=== PATIENT | female | born 1965 | race Caucasian/White ===

== ENCOUNTER 2016-10-01 11:09 | Observation (INO) | payer BC ==
--- NOTE | 2016-09-14 23:04 | HP ---
CC: Dr. Ritu Finn * PREOPERATIVE HISTORY AND PHYSICAL: DATE OF ADMISSION: This patient is scheduled for same day surgery admission by Dr. Albarado on 09/17/16. DATE OF PREOPERATIVE HISTORY AND PHYSICAL EXAMINATION: 09/07/16 ATTENDING SURGEON: Dr. Joanna Albarado (dictated by Landy Hall NP). CHIEF COMPLAINT: Right breast cancer. HISTORY OF PRESENT ILLNESS: The patient is a 50-year-old female referred to Dr. Albarado by Dr. Ritu Finn for evaluation of a new right breast cancer diagnosis. The patient noticed a firm tender area in the inferior right breast about 2 months ago. This prompted an evaluation by her primary care provider and mammogram was performed on 08/26/16. She was found to have an abnormality in a slightly different area of the breast, which was biopsied and this revealed invasive ductal cancer. She has no family history of breast or ovarian cancer. Menarche was at age 12, menopause at age 40, first delivery at age 31, and she did breast feed. She is not taking any type of hormone therapy. She did take control pills for more than 10 years. She has never had radiation to the chest and has never had previous breast biopsies. Dr. Albarado ordered an MRI of the breast, which confirmed a large mass in the inferior portion of the right breast correlating with the known breast cancer; enlarged right axillary lymph nodes were suspicious for metastatic disease. Dr. Albarado met with the patient and discussed the above findings; she has recommended mammo -guided needle localization, excision of the right breast cancer and sentinel lymph node biopsy versus right mastectomy and full axillary dissection. Dr. Albarado discussed the nature of the surgical procedures, the relevant risks and benefits and today, I reviewed the expected postoperative care and recovery. The patient has had a chance to ask questions and stated that she understands the information and is satisfied with the answers given to her questions. She will sign surgical consent on the day of surgery. She will have a preoperative consultation with Dr. Julia Cornejo and Dr. Ti Thompson. She has the support of the Oncology nurse navigator as well. 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 Ramirez; celiac disease. PAST SURGICAL HISTORY: Tubal ligation; appendectomy; sinus surgery and liver biopsy. MEDICATIONS: 1. Omeprazole 40 mg p.r.n. 2. Hydrochlorothiazide 12.5 mg p.r.n. She previously took CellCept, but has been off of that for over a month. She does not take any vitamins or herbs or other [id number] medications. ALLERGIES: PENICILLIN. FAMILY HISTORY: There is a very strong family history of anaphylaxis in her parents, so the patient has never taken PENICILLIN; she is ALLERGIC TO GLUTEN and IBUPROFEN cause sneezing. Mother at age 49 with bile duct cancer. Father living with the history of hypertension. No known anesthesia reactions , bleeding tendencies or clotting disorders. 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 She has never been a smoker. She drinks alcohol socially and denies the use of other substances. REVIEW OF SYSTEMS: Constitutional: No recent symptoms. Cardiovascular: Denies chest pain, pressure, palpitations. Denies history of deep vein thrombosis or pulmonary embolism. Respiratory: Denies any shortness of breath. Denies any previous anesthesia complications. Gastrointestinal: History of celiac disease and autoimmune cirrhosis and hepatitis, followed by Dr. Ramirez. She has associated thrombocytopenia and platelet count is typically in the 50s. She denies any recent bleeding tendencies and received platelets and iron transfusions [place] [address] Ramirez. Genitourinary: Denies any dysuria or history of recent urinary tract or kidney infections. Musculoskeletal: She has occasional swelling of feet and ankles and takes hydrochlorothiazide p.r.n. Neurologic: Denies any conditions or complaints. PHYSICAL EXAMINATION GENERAL: The patient is a 50-year-old obese female, well-developed, in no acute distress. VITAL SIGNS: Height 63 inches, weight 189 pounds, body mass index 33.5. Blood pressure 118/80, pulse 86 and regular, respiratory rate 18, temperature 98, tympanic. HEENT: Benign. NECK: Supple. No cervical lymphadenopathy. No thyromegaly. BACK: No CVA tenderness. LUNGS: Breath sounds bilaterally clear and equal. BREASTS: Exam was performed while patient was in a supine and in a sitting position. Breasts are symmetrical. Resolving bruising of the right breast. No evidence of infection at the biopsy site. Palpation reveals dense tissue in both upper outer quadrants; in the right breast inferiorly is a broad area of thickening that is mildly tender. Nipples are normal bilaterally. No palpable supraclavicular lymphadenopathy. Palpable adenopathy of the right axillary nodes. HEART: Regular rate and rhythm. No murmurs or rubs. ABDOMEN: Active bowel sounds. Soft, nondistended, nontender throughout. No obvious masses, organomegaly or evidence of umbilical hernia. EXTREMITIES: Warm without edema or skin ulcerations. PELVIC AND RECTAL: Deferred. NEUROLOGIC: Alert and oriented x3. Steady gait. SKIN: Warm, dry, intact. IMPRESSION: Right breast cancer. PLAN: Same day surgery admission to Dr. Albarado's service on 09/17/16, for mammo-guided needle localization, excision, right breast cancer and sentinel lymph node biopsy versus right mastectomy and full axillary dissection. LANDY HALL, MEDICAL OFFICE ASST [id number]/[facility] #: [id number] [place]
[~2016-10-01 11:09] MED LIST: Buffered Lidocaine 0.9% SYRIN* 5 ML/SYR SYRINGE INTRADERM ONE; Buffered Lidocaine 0.9% SYRIN* 5 ML/SYR SYRINGE ONE; Clindamycin 900 MG IVPREMIX(* 0 MG/0 ML SDV IV ONE; Famotidine TAB* 20 MG ONE; Famotidine TAB* 20 MG PO ONE; Metoclopramide TAB* 10 MG ONE; Metoclopramide TAB* 10 MG PO ONE; Sodium Citrate/Citric Acid* 15 ML UDC ONE; Sodium Citrate/Citric Acid* 15 ML UDC PO ONE
[2016-10-01 11:48] LABS: Hematocrit 38 % (35-47); Mean Corpuscular HGB Conc 34 g/dl (31-36); Mean Corpuscular Hemoglobin 35 pg (27-31); Mean Corpuscular Volume 103 fL (80-97); Mean Platelet Volume 8 um3 (7.4-10.4); Red Blood Count 3.72 10^6/ul (4.0-5.4); Red Cell Distribution Width 15 % (10.5-15)
[2016-10-01 11:56] LABS: Comments Flag Yes
[2016-10-01] MEDS ORDERED: Clindamycin 900 MG IVPREMIX(* 900 MG/50 ML SDV IV ONE (12:01)
[2016-10-01] MEDS ORDERED: Scopolamine 1.5 mg* PATCH ONE (12:13)
[2016-10-01] MEDS ORDERED: Bupivacaine 0.25% SDV* 30 ML ONE (12:13)
[2016-10-01] MEDS ORDERED: fentaNYL* 50 MCG/ML 2 ML VIAL (100 MCG VIAL) ONE ×3 (13:04→17:07)
[2016-10-01] MEDS ORDERED: DiMENhydriNATE IV* 50 MG/ML VIAL IV PUSH PRN (13:44)
[2016-10-01] MEDS ORDERED: Dexamethasone IV* 4 MG/ML 1 ML (4 MG) ONE (14:17)
[2016-10-01] MEDS ORDERED: Propofol* 10 MG/ML 20 ML BTL IV PUSH ONE (14:17)
[2016-10-01] MEDS ORDERED: Lidocaine 2% PF * 5 ML VIAL ONE (14:17)
[2016-10-01] MEDS ORDERED: Ondansetron INJ* 2 MG/ML VIAL ONE (14:17)
[2016-10-01] MEDS ORDERED: Ondansetron INJ* 2 MG/ML VIAL IV PRN (16:35)
[2016-10-01] MEDS ORDERED: Docusate CAP* 100 MG PO PRN (16:35)
[2016-10-01] MEDS ORDERED: HYDROmorphone* 1 MG/ML 1 ML SYR IV PRN (16:35)
[2016-10-01] MEDS ORDERED: Acetaminophen TAB* 325 MG PO PRN (16:35)
--- NOTE | 2016-10-01 16:43 | PN ---
Progress Note - Progress Note Date of Service: 10/01/16 Note: Brief Operative Note: Pre-op: Right breast CA Post-op: Same Procedure: Bilateral mastectomy with right axillary dissection Surgeon: Dr. Albarado Parts Analyst: Nathaly Mccoy Anaesthesia: GETA EBL: 250 cc Fluids: 3000 cc LR Drains: AMANDA-vac to self-suction x3 Catheter: None Specimen: Bilateral breasts, Right axillary contents
[2016-10-01] MEDS ORDERED: HYDROmorphone* 1 MG/ML 1 ML SYR ONE (16:44)
[2016-10-01] MEDS: HYDROmorphone* 1 MG/ML 1 ML SYR IV PRN ×5 (16:45→17:24)
[2016-10-01] MEDS: fentaNYL* 50 MCG/ML 2 ML VIAL (100 MCG VIAL) IV PRN ×2 (17:07→17:14)
[2016-10-01] MEDS ORDERED: oxyCODONE/Acetamin 5/325 MG* TAB ONE (19:04)
[2016-10-01] MEDS: diPHENhydraMINE PO* 25 MG PO PRN (20:50)
[2016-10-01] MEDS: oxyCODONE/Acetamin 5/325 MG* TAB PO PRN (23:04)
[2016-10-02] MEDS: oxyCODONE/Acetamin 5/325 MG* TAB PO PRN ×5 (03:23→21:25)
[2016-10-02 07:25] LABS: Comments Flag Yes; Hematocrit 32 % (35-47); Hemoglobin 10.9 g/dl (12.0-16.0); Mean Corpuscular HGB Conc 34 g/dl (31-36); Mean Corpuscular Hemoglobin 36 pg (27-31); Mean Corpuscular Volume 105 fL (80-97); Mean Platelet Volume 8 um3 (7.4-10.4); Red Blood Count 3.05 10^6/ul (4.0-5.4); Red Cell Distribution Width 14 % (10.5-15); White Blood Count 8.5 10^3/ul (3.5-10.8)
--- NOTE | 2016-10-02 07:50 | PN ---
Progress Note - Progress Note Date of Service: 10/02/16 Note: Surgery Ms. Flynn c/o some pain in right axilla and also some "tingling" in the right arm. She has tolerated clears. She has some dizziness which she attributes to not eating. Vital Signs 10/01/16 10/01/16 10/01/16 11:37 16:35 16:40 Temperature 97.9 F 98.2 F Pulse Rate 86 87 84 Respiratory 16 20 20 Rate Blood Pressure 119/77 112/63 102/70 (mmHg) O2 Sat by Pulse 97 93 95 Oximetry 10/01/16 10/01/16 10/01/16 16:45 16:50 16:54 Temperature Pulse Rate 81 80 Respiratory 20 20 20 Rate Blood Pressure 109/87 106/80 (mmHg) O2 Sat by Pulse 96 95 Oximetry 10/01/16 10/01/16 10/01/16 17:00 17:03 17:07 Temperature Pulse Rate 82 Respiratory 20 20 20 Rate Blood Pressure 101/70 (mmHg) O2 Sat by Pulse 95 Oximetry 10/01/16 10/01/16 10/01/16 17:13 17:14 17:15 Temperature 98.4 F Pulse Rate 60 Respiratory 18 18 20 Rate Blood Pressure 109/73 (mmHg) O2 Sat by Pulse 99 Oximetry 10/01/16 10/01/16 10/01/16 17:24 17:30 17:47 Temperature Pulse Rate 77 63 Respiratory 18 18 20 Rate Blood Pressure 113/81 102/75 (mmHg) O2 Sat by Pulse 99 98 Oximetry 10/01/16 10/01/16 10/01/16 18:36 19:10 19:39 Temperature 98.4 F 97.8 F Pulse Rate 71 64 Respiratory 16 16 16 Rate Blood Pressure 120/68 97/46 (mmHg) O2 Sat by Pulse 97 97 Oximetry 10/01/16 10/01/16 10/01/16 20:13 20:45 20:50 Temperature 98.2 F Pulse Rate 81 Respiratory 16 16 16 Rate Blood Pressure 114/57 (mmHg) O2 Sat by Pulse 97 Oximetry 10/01/16 10/01/16 10/01/16 20:58 22:24 23:04 Temperature 99.7 F Pulse Rate 72 Respiratory 16 16 16 Rate Blood Pressure 99/64 (mmHg) O2 Sat by Pulse 98 Oximetry 10/02/16 10/02/16 10/02/16 00:16 01:03 03:08 Temperature 98.8 F 98.2 F Pulse Rate 77 67 Respiratory 16 16 16 Rate Blood Pressure 124/48 99/55 (mmHg) O2 Sat by Pulse 97 98 Oximetry 10/02/16 10/02/16 10/02/16 03:23 05:23 07:48 Temperature Pulse Rate Respiratory 20 16 16 Rate Blood Pressure (mmHg) O2 Sat by Pulse Oximetry Mastectomy sites: all flaps viable; incisions clean and dry. JPs: all are draining serosanguinous fluid Intake & Output 10/01/16 10/02/16 10/02/16 22:59 06:59 14:59 Intake Total 4180 1000 Output Total 1020 715 600 Balance 3160 285 -600 Intake: IV Fluids 2180 LR 200 NS 1000 Oral 2000 1000 Output: AMANDA #1 185 90 AMANDA #2 240 70 AMANDA #3 195 55 Urine 400 500 600 Other: # Bowel Movements 0 Laboratory Results - last 24 hr 10/01/16 10/01/16 10/02/16 11:35 11:38 07:06 WBC 3.0 L 8.5 RBC 3.72 L 3.05 L Hgb 13.0 10.9 L Hct 38 32 L MCV 103 H 105 H MCH 35 H 36 H MCHC 34 34 RDW 15 14 Plt Count 64 L 79 L MPV 8 8 Neut % (Auto) 82.4 Lymph % (Auto) 12.2 L Lander % (Auto) 5.2 Eos % (Auto) 0 Baso % (Auto) 0.2 Absolute Neuts (auto) 7.0 Absolute Lymphs (auto) 1.0 Absolute Monos (auto) 0.4 Absolute Eos (auto) 0 Absolute Basos (auto) 0 Absolute Nucleated RBC 0.01 Nucleated RBC % 0.1 INR (Anticoag Therapy) 1.19 H A/P: POD#1 s/p bilateral mastectomies; doing well. Can go home when tolerating PO, when comfortable managing drains, and when pain under control [facility]
--- NOTE | 2016-10-02 13:31 | OP ---
CC: [facility]; Dr. Julia Cornejo; Dr. Ritu Finn * DATE OF OPERATION: 10/01/16 - ROOM #333 DATE OF : 65 SURGEON: Joanna Albarado MD ASSISTANTS: 1. MARIUSZ Duncan 2. KOJO Rivers ANESTHESIOLOGIST: Carlos Enrique Rivera MD ANESTHESIA: General PRE-OP DIAGNOSIS: Right breast cancer. POST-OP DIAGNOSIS: Right breast cancer. OPERATIVE PROCEDURE: Right mastectomy with axillary dissection and left simple mastectomy. INDICATIONS: Ms. Flynn is a 51-year-old woman with a recent diagnosis of breast cancer who has opted for bilateral mastectomies; and, since she has clinically positive lymph nodes, she requires an axillary dissection. She was therefore prepared for surgery and brought to the operating room. DESCRIPTION OF PROCEDURE: She was placed on the OR table in the supine position and given general anesthesia. The chest and right axilla were prepped and draped in the usual sterile fashion. First step was to turn to the right side, which was the side of the malignancy, here a curvilinear incision in the superior breast was made and subcutaneous tissue was divided with electrocautery to create flaps superiorly to the clavicle, medially to the sternum, and laterally to the latissimus dorsi muscle. An inferior incision was made to create ellipse that included the nipple-areolar complex and again the subcutaneous tissue was divided with electrocautery to create flaps medially to the sternum, inferiorly to the rectus muscle, and laterally to the latissimus dorsi muscle. The breast was then elevated off the chest wall using electrocautery. Throughout the case, electrocautery was used to control bleeding vessels. Once the lateral most extent of the mastectomy dissection was reached, attention was turned to the axilla and here the axillary contents were identified and swept posteriorly from the pectoralis muscle, inferiorly from the axillary vein, and using a combination of sharp and blunt dissection, the axillary contents were dissected free from the axilla. Clips were used to control small lymphatic and blood vessels in the area and the long thoracic and thoracodorsal nerves were identified and noted to be functional. Once the entire specimen was out of the axilla and off the chest wall, it was marked in the usual fashion and handed off as a specimen. Again, hemostasis was assured and the wound was irrigated with saline. Closure was then accomplished. The subcutaneous layer was closed first using 2-0 Polysorb stitches and prior to completing this closure, AMANDA drain was placed in the wound, emerging from stab wound in the anterior and midaxillary lines inferiorly. The medial AMANDA drain was placed under the flaps to the mastectomy site and the lateral AMANDA drain was placed in the axillary bed. Closure of the skin of the incision was completed with 4-0 Polysorb in a subcuticular fashion and the drains were secured to the chest wall with 3-0 Surgipro stitches. Attention was then turned to the left side and here in a similar fashion a superior incision was made encompassing the superior breast. Flaps were developed using electrocautery medially to the sternum, superiorly to the clavicle, and laterally to the latissimus dorsi muscle. Then, an inferior incision was made and subcutaneous tissue was again dissected using cautery medially to the sternum, inferiorly to the rectus muscle, and laterally to the latissimus dorsi muscle. The breast was elevated off the chest wall using electrocautery and once it was completely removed from the chest wall, it was handed off as a specimen. Hemostasis was assured with electrocautery and once this was adequate, closure was accomplished. Additional skin had to be excised to make the closure nice. Once this was done, closure was accomplished with 2- 0 Polysorb in a subcutaneous layer and the skin was closed with 4-0 Polysorb in a subcuticular fashion. Again, just prior to closing, a AMANDA drain was placed under the flaps of the mastectomy site, emerging from the stab wound in the anterior axillary line inferiorly. It was secured to the chest wall with a 3-0 Surgipro stitch. Finally, it should be mentioned that additional skin was also removed from the right side prior to completing the closure there. Steri- Strips and dry fluffy dressing were applied and held in place with an Matt wrap. All sponge and instrument counts were correct. The patient tolerated the procedure well and was transferred to Recovery in a stable condition. [id number]/[facility] #: [id number] [place]
[2016-10-02] MEDS: diPHENhydraMINE PO* 25 MG PO PRN (19:00)
[2016-10-03] MEDS: oxyCODONE/Acetamin 5/325 MG* TAB PO PRN ×3 (01:13→10:01)
[2016-10-03 07:47] VITALS: BP 122/55
--- NOTE | 2016-10-03 09:37 | PN ---
Progress Note - Progress Note Date of Service: 10/03/16 SOAP: Subjective: Pt seen and examined. No complaints. Wants to go home. Objective: af vss chest : No evidence of undrained collections; dressing intact and not removed. AMANDA x3: serosanguinous Assessment: POD b/l mastectomy Plan: d/c home F/u in office
[2016-10-03] MEDS: diPHENhydraMINE PO* 25 MG PO PRN (11:00)
== END 2016-10-03 11:20 | disposition home or self-care (01) ==
LOC: SDS 11:09 → SSU 16:35
PROVIDERS: ADMIT Surgery; ATTEND Surgery
PROC: 07T50ZZ Resection of Right Axillary Lymphatic, Open Approach (ICD-10-PCS; 2016-10-01)
PROC: 0HTV0ZZ Resection of Bilateral Breast, Open Approach (ICD-10-PCS; principal; 2016-10-01 13:30)
DX: C50.911 Malignant neoplasm of unspecified site of right female breast (principal); K75.4 Autoimmune hepatitis; D69.6 Thrombocytopenia, unspecified; K90.0 Celiac disease; Z79.899 Other long term (current) drug therapy
CPT/HCPCS: 36415; 85025; 85027; 85610; 88305; 88307; 88309; A9270-GY; G0378; J1100; J1170; J2405; J2704; J3010; P9035

== ENCOUNTER 2016-10-29 08:32 | Day surgery (SDC) | payer BC ==
[~2016-10-29 08:32] MED LIST changes: -Buffered Lidocaine 0.9% SYRIN* 5 ML/SYR SYRINGE ONE; -Clindamycin 900 MG IVPREMIX(* 0 MG/0 ML SDV IV ONE; +Famotidine IV* 10 MG/ML 2 ML (20 mg) IV ONE; -Famotidine TAB* 20 MG ONE; -Famotidine TAB* 20 MG PO ONE; -Metoclopramide TAB* 10 MG ONE; -Metoclopramide TAB* 10 MG PO ONE; -Sodium Citrate/Citric Acid* 15 ML UDC ONE; -Sodium Citrate/Citric Acid* 15 ML UDC PO ONE
[2016-10-29] MEDS ORDERED: Famotidine IV* 10 MG/ML 2 ML (20 mg) ONE (08:50)
[2016-10-29] MEDS ORDERED: Buffered Lidocaine 0.9% SYRIN* 5 ML/SYR SYRINGE ONE (08:51)
[2016-10-29] MEDS ORDERED: Midazolam* 1 MG/ML 5 ML VIAL (5 MG) ONE (09:27)
[2016-10-29] MEDS ORDERED: fentaNYL* 50 MCG/ML 2 ML VIAL (100 MCG VIAL) ONE (09:27)
[2016-10-29 09:37] LABS: Hematocrit 31 % (35-47); Mean Corpuscular HGB Conc 33 g/dl (31-36); Mean Corpuscular Hemoglobin 33 pg (27-31); Mean Corpuscular Volume 100 fL (80-97); Mean Platelet Volume 8 um3 (7.4-10.4); Red Blood Count 3.07 10^6/ul (4.0-5.4); Red Cell Distribution Width 14 % (10.5-15); White Blood Count 2.7 10^3/ul (3.5-10.8)
[2016-10-29 09:43] LABS: Comments Flag Yes
[2016-10-29] MEDS ORDERED: Acetaminophen TAB* 325 MG PO PRN (10:10)
[2016-10-29] MEDS ORDERED: DiMENhydriNATE IV* 50 MG/ML VIAL IV PUSH PRN (10:10)
[2016-10-29] MEDS ORDERED: Bupivacaine 0.5% W/EPI SDV* 10 ML VIAL INJ ONE (10:20)
[2016-10-29] MEDS ORDERED: Lidocaine 1% INJ* 10 MG/ML 30 ML SDV ONE (10:21)
[2016-10-29] MEDS ORDERED: KETAMINE HCL* 50 MG/ML 10 ML VIAL ONE (10:59)
[2016-10-29] MEDS ORDERED: ceFAZolin 1 GM VIAL(*) ONE ×2 (11:01)
[2016-10-29] MEDS ORDERED: Lidocaine 2% PF * 5 ML VIAL ONE (11:10)
[2016-10-29] MEDS ORDERED: Propofol* 10 MG/ML 20 ML BTL IV PUSH ONE ×2 (11:10→11:41)
[2016-10-29] MEDS ORDERED: Ondansetron INJ* 2 MG/ML VIAL ONE (11:10)
[2016-10-29] MEDS ORDERED: Dexamethasone IV* 4 MG/ML 1 ML (4 MG) ONE (11:10)
[2016-10-29] MEDS ORDERED: Midazolam* 1 MG/ML 2 ML VIAL (2 MG) ONE (11:22)
[2016-10-29] MEDS ORDERED: DiMENhydriNATE IV* 50 MG/ML VIAL ONE (11:36)
[2016-10-29] MEDS ORDERED: oxyCODONE TAB* 5 MG TAB ONE (12:26)
[2016-10-29] MEDS: oxyCODONE TAB* 5 MG TAB PO PRN ×2 (12:27→12:28)
[2016-10-29] MEDS ORDERED: oxyCODONE/Acetamin 5/325 MG* TAB PO PRN (12:28)
--- NOTE | 2016-10-29 12:43 | RAD ---
CPT II Codes: 6045F Indication: PowerPort insertion. Fluoroscopic services provided for referring physician for PowerPort insertion. 92.5 seconds of fluoroscopy time was used. 2 spot images demonstrates PowerPort tip in superior vena cava. IMPRESSION: Fluoroscopic services provided for referring physician for PowerPort placement.
--- NOTE | 2016-10-29 12:56 | RAD ---
INDICATION: Central venous line insertion COMPARISON: 2016 TECHNIQUE: An AP portable view obtained at 1230 hours is submitted. FINDINGS: Bones/Soft Tissues: There are no acute bony findings. There is a left-sided [id number] catheter terminating in the superior vena cava Cardiomediastinal: The cardiomediastinal silhouette is normal. Lungs: There are no infiltrates. There is no pneumothorax Pleura: There are no pleural effusions. Other: None IMPRESSION: LEFT-SIDED CENTRAL VENOUS CATHETER. NO PNEUMOTHORAX.
[2016-10-29 13:01] LABS: Albumin 2.8 g/dL (3.2-5.2); BUN/Creatinine Ratio 17.5 (8-20); Calcium 7.7 mg/dL (8.6-10.3); Direct Bilirubin 0.3 mg/dL (0.03-0.18); EGFR African American 216.4 (>60); EGFR Non-African American 168.3 (>60); Globulin 2.7 g/dL (2-4); Indirect Bilirubin 0.8 mg/dL (0.3-1.0); Total Bilirubin 1.1 mg/dL (0.2-1.0); Total Protein 5.5 g/dL (6.4-8.9)
[2016-10-29 13:16] VITALS: BP 115/80
--- NOTE | 2016-11-15 03:47 | OP ---
DATE OF OPERATION: 10/29/16 [facility] DATE OF : 65 SURGEON: Joanna Albarado MD ANESTHESIOLOGIST: Almaz Hodges MD ANESTHESIA: MAC PRE-OPERATIVE DIAGNOSIS: Breast cancer. POST-OPERATIVE DIAGNOSIS: Breast cancer. OPERATIVE PROCEDURE: PowerPort placement. INDICATIONS: Ms. Flynn is a 51-year-old woman recently diagnosed with breast cancer, who underwent bilateral mastectomy and needs chemotherapy. Plans were therefore made for PowerPort placement. DESCRIPTION OF PROCEDURE: She was brought to the operating room, placed on the OR table in a supine position and given IV sedation. The chest was prepped and draped in the usual sterile fashion and after infiltrating with local anesthetic , using a Seldinger technique under fluoroscopic visualization, a wire was placed into the left subclavian vein. Then, a port pocket was created by infiltrating the skin of the chest wall with local anesthetic making an incision and creating a pocket inferiorly using electrocautery. Once the pocket was of an adequate size, the catheter was tunneled from the port pocket site to the wire exit site and then dilator and introducer were placed over the wire into the left subclavian vein under fluoroscopic visualization. The dilator and wire were removed. The catheter was advanced through the introducer under fluoroscopic visualization as the introducer was peeled away. The catheter was then drawn back to an appropriate depth and trimmed to an appropriate length, attached to the port. The port was inserted into the port pocket and secured to the chest wall with 2-0 Surgipro stitches, then closure was accomplished, this was done with 3-0 Polysorb in the subcutaneous layer. The skin was closed with 4-0 Surgipro in a subcuticular fashion. Prior to closing them, function of the port was confirmed by flushing it with saline and then after the skin was closed with 4-0 Surgipro in a subcuticular fashion, the port was flushed with heparinized saline and the needle was left in place. A dry sterile dressing was then applied. All sponge and instrument counts were correct. The patient tolerated the procedure well and was transferred to Recovery in a stable condition. [id number]/[facility] #: [id number] [facility]
== END 2016-10-29 13:24 | disposition home or self-care (01) ==
LOC: OR 08:32
PROVIDERS: ATTEND Surgery
DX: C50.511 Malignant neoplasm of lower-outer quadrant of right female breast (principal); D69.6 Thrombocytopenia, unspecified; K75.4 Autoimmune hepatitis; K71.7 Toxic liver disease with fibrosis and cirrhosis of liver
CPT/HCPCS: 36415; 71010; 76000; 80053; 82248; 85025; A9270-GY; C1788; J0690; J1100; J1240; J1642; J2001; J2250; J2405; J2704; J3010

== ENCOUNTER 2018-12-30 15:31 | Inpatient (IN) | payer BC ==
--- NOTE | 2018-12-30 15:45 | ED ---
Altered Mental Status - HPI Summary HPI Summary: 53 year old F brought in by EMS to [facility] accompanied by family members complains of disorientation and confusion since yesterday after dinner. Per daughter, patient feels unsteady on her feet. Symptoms aggravated by nothing. Symptoms alleviated by nothing. Patient has had episodes of similar symptoms in the past for which she has been hospitalized, last time being 2 weeks ago. Patient is visiting [place] from [place]. Hx renal failure secondary to non-alcoholic cirrhosis. Hx anemia. Hx breast cancer. Surgical hx: mastectomy. Patient has a port. - History Of Current Complaint Chief Complaint: EDAltMentalStatus Stated Complaint: LETHARGY / CONFUSION PER EMS Time Seen by Provider: 12/30/18 15:41 Hx Obtained From: Patient, Family/Wholesale Manager - daughter Onset/Duration: Still Present Timing: Constant, Lasting Hours - yesterday after dinner Character: Confusion Aggravating Factor(s): Nothing Alleviating Factor(s): Nothing - Allergies/Home Medications Allergies/Adverse Reactions: Allergies Allergy/AdvReac Type Severity Reaction Status Date / Time gluten Allergy GI Upset Verified 12/30/18 15:42 Penicillins Allergy See Comment Verified 12/30/18 15:42 PMH/Surg Hx/FS Hx/Imm Hx Endocrine/Hematology History: Denies: Hx Diabetes Cardiovascular History: Denies: Hx Hypertension, Hx Pacemaker/ICD, Other Cardiovascular Problems/ Disorders Respiratory History: Denies: Other Respiratory Problems/Disorders GI History: Reports: Hx Cirrhosis - non-alcoholic, caused by ciliac disease Denies: Other GI Disorders History: Reports: Other Problems/Disorders - renal failure Musculoskeletal History: Denies: Other Musculoskeletal History Sensory History: Reports: Hx Contacts or Glasses - contacts and glasses Denies: Hx Hearing Aid Opthamlomology History: Reports: Hx Contacts or Glasses - contacts and glasses Neurological History: Denies: Other Neuro Impairments/Disorders Psychiatric History: Denies: Hx Panic Disorder - Cancer History Cancer Type, Location and Year: BREAST CA Hx Chemotherapy: No - will be starting on tuesday - Surgical History Surgery Procedure, Year, and Place: biopsies, appendectom. mastectomy Hx Anesthesia Reactions: No Infectious Disease History: No Infectious Disease History: Reports: Hx Hepatitis - autoimmune Denies: Traveled Outside the [place] in Last 30 Days - Family History Known Family History: Positive: Other - NEG: Breast cancer - Social History Alcohol Use: Weekly Alcohol Amount: 1 Substance Use Type: Reports: None Substance Use Comment - Amount & Last Used: at democrat Smoking Status (MU): Never Smoked Tobacco Have You Smoked in the Last Year: No Review of Systems Negative: Fever Neurological: Other - disorientation, confusion, unsteady on her feet All Other Systems Reviewed And Are Negative: Yes Physical Exam - Summary Physical Exam Summary: Appearance: The patient is well-nourished in no acute distress and in no acute pain. Skin: The skin is warm and dry. She is jaundiced and icteric. HEENT: The head is normocephalic and atraumatic. The pupils are equal and reactive. The conjunctivae are clear and without drainage. Nares are patent and without drainage. Mouth reveals moist mucous membranes, and the throat is without erythema and exudate. The external ears are intact. The ear canals are patent and without drainage. The tympanic membranes are intact. Neck: The neck is supple with full range of motion and non-tender. There are no carotid bruits. There is no neck vein distension. Respiratory: Chest is non-tender. Lungs are clear to auscultation and breath sounds are symmetrical and equal. Cardiovascular: Heart is regular rate and rhythm. There is no murmur or rub auscultated. There is no peripheral edema and pulses are symmetrical and equal. Abdomen: The abdomen is soft and non-tender. There are normal bowel sounds heard in all four quadrants and there is no organomegaly palpated. Musculoskeletal: There is no back tenderness noted. Extremities are non-tender with full range of motion. There is good capillary refill. There is no peripheral edema or calf tenderness elicited. Neurological: Patient is asterixis and oriented to person, place and time. The patient has symmetrical motor strength in all four extremities. Cranial nerves are grossly intact. Deep tendon reflexes are symmetrical and equal in all four extremities. Psychiatric: The patient has an appropriate affect and does not exhibit any anxiety or depression. Triage Information Reviewed: Yes Vital Signs On Initial Exam: Initial Vitals Temp Pulse Resp BP Pulse Ox 98.3 F 69 15 91/56 100 12/30/18 15:35 12/30/18 15:35 12/30/18 15:35 12/30/18 15:35 12/30/18 15:35 Vital Signs Reviewed: Yes Procedures - Sedation Patient Received Moderate/Deep Sedation with Procedure: No Diagnostics - Vital Signs Vital Signs Temp Pulse Resp BP Pulse Ox 12/30/18 15:35 98.3 F 69 15 91/56 100 - Laboratory Result Diagrams: 12/30/18 16:17 12/30/18 16:17 Lab Statement: Any lab studies that have been ordered have been reviewed, and results considered in the medical decision making process. Altered Mental Statu Course/Dx - Course Course Of Treatment: Ms. Flynn was brought in by her family for confusion. She has a history of HILL and has been admitted for hepatic encephalitis several times. She was a bit confused with an unsteady gait and asterixis. Her ammonia was 273. She is reportedly on lactulose and says that she has been taking it. - Diagnoses Provider Diagnoses: Hepatic encephalopathy - Provider Notifications Discussed Care Of Patient With: Trae Aburto Time Discussed With Above Provider: 17:05 Instructed by Provider To: Other - Dr. Aburto, hospitalist, agrees to admit patient Discharge ED - Sign-Out/Discharge Documenting (check all that apply): Patient Departure - Admit - Discharge Plan Condition: Stable Disposition: ADMITTED TO [facility] Referrals: Ritu Finn MD [Medical Doctor] - - Billing Disposition and Condition Condition: STABLE Disposition: Admitted to [facility] - Attestation Statements Document Initiated by Robin: Yes Documenting Scribe: Shelly Glasgow Provider For Whom Robin is Documenting (Include Credential): Romel Whitmore MD Scribe Attestation: Shelly Guerrero, scribed for Romel Whitmore MD on 12/30/18 at 1810. Scribe Documentation Reviewed: Yes Provider Attestation: The documentation as recorded by the scribe, Shelly Glasgow accurately reflects the service I personally performed and the decisions made by me, Romel Whitmore MD Status of Scribe Document: Viewed
[2018-12-30 16:35] LABS: INR 1.27 (0.82-1.09)
[2018-12-30 16:48] LABS: Albumin 3.1 g/dL (3.2-5.2); Albumin/Globulin Ratio 1.2 (1-3); BUN/Creatinine Ratio 27.3 (8-20); Calcium 8.3 mg/dL (8.6-10.3); EGFR African American 94.9 (>60); EGFR Non-African American 78.4 (>60); Globulin 2.6 g/dL (2-4); Potassium 4.3 mmol/L (3.5-5.0); Total Protein 5.7 g/dL (6.4-8.9)
[2018-12-30 17:03] LABS: Urine Appearance Clear; Urine Bilirubin Negative (Negative); Urine Blood Negative (Negative); Urine Color Straw; Urine Glucose Negative (Negative); Urine Ketones Negative (Negative); Urine Nitrite Negative (Negative); Urine Protein Negative (Negative); Urine Specific Gravity 1.005 (1.010-1.030); Urine Urobilinogen Negative (Negative)
[2018-12-30 17:13] LABS: ABS Eosinophils 0.2 10^3/ul (0-0.6); ABS Lymphocytes 0.8 10^3/ul (1.0-4.8); ABS Monocytes 0.3 10^3/ul (0-0.8); ABS Neutrophils 1.9 10^3/ul (1.5-7.7); Eosinophil % 5.6 %; Hematocrit 22 % (35-47); Hemoglobin 7.9 g/dL (12.0-16.0); Lymphocyte % 25.1 %; Mean Corpuscular HGB Conc 35 g/dL (31-36); Mean Corpuscular Hemoglobin 39 pg (27-31); Mean Corpuscular Volume 111 fL (80-97); Mean Platelet Volume 7.9 fL (7.4-10.4); Nucleated Red Blood Cells % 0.1; Platelet Count 97 10^3/uL (150-450); Red Cell Distribution Width 26 % (10-15); White Blood Count 3.2 10^3/uL (3.5-10.8)
[2018-12-30 17:34] LABS: Polychromasia 1+
[2018-12-30 17:35] LABS: Microcytosis 2+
[2018-12-30] MEDS ORDERED: Prochlorperazine TAB* 10 MG PO PRN (18:56)
[2018-12-30] MEDS: Pantoprazole TAB * 40 MG TAB PO SCH (20:54)
[2018-12-30] MEDS: Heparin VIAL(*) 5000 UNITS/ML VIAL (FIVE THOUSAND) SUBCUT SCH (20:54)
[2018-12-30] MEDS ORDERED: RIFAXIMIN PO SCH (21:00)
[2018-12-30] MEDS: Rifaximin 20 mg/mL Suspension (Pharmacy to Compound) PO SCH (21:13)
--- NOTE | 2018-12-30 22:40 | HP ---
HISTORY AND PHYSICAL: DATE OF ADMISSION: 12/30/18 PRIMARY CARE PHYSICIAN: Not listed. ATTENDING PHYSICIAN: Dr. Aston Aburto * (dictation provided by Olinda Cortez NP ). CHIEF COMPLAINT: Altered mental status. HISTORY OF PRESENT ILLNESS: Ms. Flynn is a 53-year-old female with a past medical history of nonalcoholic steatohepatitis as well as a past medical history breast cancer status post mastectomy and chemotherapy, who presents to the hospital today with concern for altered mental status. Ms. Flynn is accompanied by her daughter and she is able to offer some information, but most of the past medical history and the history of present illness was obtained from her , Dakota, who I spoke with on the phone. Per the report Ms. Flynn has had a long-term history of HILL that was essentially asymptomatic. About 2 years ago, she was diagnosed with breast cancer and had a double mastectomy with chemotherapy and radiation. This seemed to have exacerbated her underlying liver failure. Over the past 4 to 5 months, she has had multiple episodes of internal bleeding and has been hospitalized 6 to 7 times. Her reports that she has received 30 to 35 units packed red blood cells for this. However, this seems to have finally stabilized over the past month or so. Over the past 1.5 to 2 months, the patient has had problems with elevated ammonia. It seems that these episodes recur about every 2 weeks. She has been admitted to the hospital 2 to 3 times for this as well. For this, she is taking lactulose and rifaximin. However, she has had a hard time taking the lactulose as the viscosity of it is very distasteful to her Ms. Flynn lives in [place], but is visiting here in the area because she is seeing her family. Emergency medical services were called to bring the patient to the emergency room today because she was evidencing confusion and lethargy. Here in the emergency room, the patient's ammonia level was found to be 273. She has a hemoglobin of 7.9, but her says that she has been chronically anemic and that this is actually good for her. She is only transfused when hemoglobin is less than 7. She has an INR of 1.27. Her sodium is 129. Her BUN and creatinine are normal. Troponin 0.00 and urine shows no evidence of infection. She is drowsy, but she does awaken to voice. She is confused. She follows commands. PAST MEDICAL HISTORY: 1. HILL with likely advanced cirrhosis and chronic intermittent hyperammonemic encephalopathy. 2. Breast cancer status post mastectomy and chemoradiation. 3. Anemia with chronic GI bleed. MEDICATIONS: 1. Compazine 10 mg q.6 hours p.r.n. 2. Colestipol 1 g p.o. daily. 3. Sucralfate 5 mL p.o. b.i.d. 4. Pantoprazole 40 mg p.o. b.i.d. 5. Lactulose 45 mL p.o. 4 times a day. 6. Furosemide 40 mg p.o. daily. 7. Anastrozole 1 mg p.o. daily. 8. Spironolactone 100 mg p.o. daily. 9. Rifaximin 550 mg p.o. b.i.d. 10. Nadolol 20 mg p.o. daily. 11. Loperamide 2 mg p.o. q.2 hours p.r.n. diarrhea. 12. Hydroxyzine 10 mg p.o. t.i.d. p.r.n. itching. FAMILY HISTORY: Not obtainable from the patient today. SOCIAL HISTORY: No report has been made of alcohol or drug use. The patient lives with her , Dakota, who is the healthcare proxy. REVIEW OF SYSTEMS: Not obtainable today given the patient's altered mental status. PHYSICAL EXAMINATION GENERAL: Ms. Flynn is lying in the bed. She is in no acute distress. Her daughter is at the bedside. VITAL SIGNS: Temperature 98.3, pulse rate 74, respiratory rate 14, O2 saturation 100% on room air, blood pressure 84/43. LUNGS: Clear to auscultation bilaterally with no accessory muscle use and good aeration. HEART: S1, S2. No murmur, rub or gallop and regular. ABDOMEN: Soft, nontender with bowel sounds positive x4. EXTREMITIES: No cyanosis, no edema. NEURO: She is sleeping when not stimulated. She does open her eyes to voice. She follows commands slowly. She moves all extremities equally. There is no facial asymmetry or focal weakness. Extraocular movements are intact. She is reported to have some uneven pupillary reaction, but the symptoms resolved. SKIN: Intact. DIAGNOSTIC STUDIES/LAB DATA: WBC 3.2, hemoglobin 7.9, hematocrit 22, platelet count 97. INR 1.27. Sodium 129, potassium 4.3, chloride 106, bicarbonate 16, BUN 21, creatinine 0.77, glucose 120. Total bilirubin 3, AST 49, ALT 59. Ammonia 273. Urine shows no evidence of infection. ASSESSMENT: Ms. Flynn is a 53-year-old female with a past medical history of advanced nonalcoholic steatohepatitis as well as breast cancer status post mastectomy, chemo and radiation, who presents today to the hospital with concern for altered mental status. Our plans are for inpatient admission. As expected the length of stay would be greater than 2 days for the followin. Altered mental status: I suspect this is secondary to elevated ammonia level in the setting of nonalcoholic steatohepatitis and cirrhosis leading to hyperammonemic encephalopathy. The patient seems to have had some difficulty taking the lactulose routinely as the viscosity is very distasteful to her and I wonder whether or not this is what is contributing to some of these episodes. Regardless, we plan to treat with lactulose. If the patient able to tolerate taking it orally, we will proceed with that route, but if she is unable to do so , plan to place NG tube tonight. We will check ammonia level and comprehensive metabolic panel in the a.m. She shows no evidence of infection or other reason for decompensation tonight. 2. Anemia. The patient's hemoglobin is 7.9. The patient's reports this is actually good for her and that she has been receiving transfusions when hemoglobin was less than 7 only. She does get iron infusion as outpatient as well. She shows no overt evidence of a gastrointestinal bleed tonight. 3. Hypotension. Patient is chronically hypotensive per report from family and this is consistent with her history. Plan to continue furosemide, spironolactone for her HILL unless SBP < 80. 3. History of breast cancer. I plan to hold anastrozole. 4. Code status is full. This was reviewed with her on the phone. 5. DVT prophylaxis with heparin subcu. TIME SPENT: Approximately 60 minutes was spent on the admission of this patient , more than half of the time was spent at the patient's bedside reviewing the events leading up to this hospitalization, performing physical examination, and reviewing my plan of care. OLINDA CORTEZ BUSINESS LIAISON MANAGER [id number]/[facility] #: [id number] [place]
[2018-12-31 06:37] LABS: Albumin 2.7 g/dL (3.2-5.2); Albumin/Globulin Ratio 1.2 (1-3); BUN/Creatinine Ratio 24.1 (8-20); Calcium 8.1 mg/dL (8.6-10.3); EGFR Non-African American 71.9 (>60); Globulin 2.2 g/dL (2-4); Potassium 4.1 mmol/L (3.5-5.0); Total Bilirubin 2.6 mg/dL (0.2-1.0); Total Protein 4.9 g/dL (6.4-8.9)
[2018-12-31 06:46] LABS: ABS Eosinophils 0.2 10^3/ul (0-0.6); ABS Lymphocytes 0.9 10^3/ul (1.0-4.8); ABS Monocytes 0.2 10^3/ul (0-0.8); ABS Neutrophils 0.9 10^3/ul (1.5-7.7); Eosinophil % 7.7 %; Hematocrit 18 % (35-47); Hemoglobin 6.7 g/dL (12.0-16.0); Lymphocyte % 42.7 %; Mean Corpuscular HGB Conc 36 g/dL (31-36); Mean Corpuscular Hemoglobin 40 pg (27-31); Mean Corpuscular Volume 111 fL (80-97); Mean Platelet Volume 7.5 fL (7.4-10.4); Nucleated Red Blood Cells % 0.1; Platelet Count 67 10^3/uL (150-450); Red Blood Count 1.65 10^6 /uL (3.70-4.87); Red Cell Distribution Width 27 % (10-15); White Blood Count 2.2 10^3/uL (3.5-10.8)
--- NOTE | 2018-12-31 08:32 | PN ---
Subjective Date of Service: 12/31/18 Interval History: HD2 53F PMH breast Ca dx 2 yr ago s/p chemo radiation finished 1 yr ago, previously asymptomatic HILL now c/b cirrhosis d/b hepatic encephalopathy (and what appears to be ascites and EV), hx of recurrent GIB with stable microcytic anemia who presented with HE in setting of poor compliance to outpt lactulose. Overnight, VSS, mild soft BP Labs: Ammonia down trending, otherwise stable save for Hgb 6.7 with pancytopenia This morning seen sleeping, confused AOx2 but pleasant, daughter at bedside, has no complaints. Asterixis present. Willing for QID Lactulose Objective Active Medications: Furosemide (Lasix Tab*) 40 mg PO DAILY [facility] Heparin Sodium (Porcine) (Heparin Vial(*)) 5,000 units SUBCUT Q12HR [facility] Last Admin: 12/30/18 20:54 Dose: 5,000 units Heparin Sodium (Porcine) (Heparin Flush Port (Ivad)) 5 ml FLUSH DAILY [facility]; Protocol Hydroxyzine HCl (Atarax Tab*) 10 mg PO TID PRN PRN Reason: ITCHING Lactulose (Lactulose*) 45 ml PO QID [facility] Last Admin: 12/30/18 20:54 Dose: 45 ml Nadolol (Corgard Tab*) 20 mg PO DAILY [facility] Pantoprazole Sodium (Protonix Tab*) 40 mg PO BID [facility] Last Admin: 12/30/18 20:54 Dose: 40 mg Prochlorperazine (Compazine Tab*) 10 mg PO Q6H PRN PRN Reason: NAUSEA Rifaximin (Xifaxan Compounded Susp) 550 mg PO BID [facility] Last Admin: 12/30/18 21:13 Dose: 550 mg Spironolactone (Aldactone Tab*) 100 mg PO DAILY [facility] Sucralfate (Carafate*) 1 gm PO AC [facility] Vital Signs - 8 hr 12/31/18 03:17 Temperature 97.4 F Pulse Rate 61 Respiratory 18 Rate Blood Pressure 124/51 (mmHg) O2 Sat by Pulse 100 Oximetry Oxygen Devices in Use Now: None Appearance: Sleeping woman who arouses with touch and voice. NCAT Eyes: PERRLA, - - +Scleral icterus Ears/Nose/Mouth/Throat: NL Teeth, Lips, Gums, Clear Oropharnyx, Mucous Membranes Moist Neck: NL Appearance and Movements; NL JVP, Trachea Midline Respiratory: Symmetrical Chest Expansion and Respiratory Effort, Clear to Auscultation, - - PORT in L chest Cardiovascular: NL Sounds; No Murmurs; No JVD, RRR Abdominal: NL Sounds; No Tenderness; No Distention, - - + Fluid wave, scattered spider angiomata, +asterixis Extremities: No Edema Skin: No Rash or Ulcers Neurological: - - Oriented to self, hospital (not [facility]), not date or time Result Diagrams: 12/31/18 06:00 12/31/18 06:05 Assess/Plan/Problems-Billing Assessment: 53F PMH breast Ca dx 2 yr ago s/p chemo radiation, previously asymptomatic HILL now c/b cirrhosis d/b hepatic encephalopathy (and what appears to be ascites and EV), hx of recurrent GIB with stable microcytic anemia who presented with decompensated cirrohosis with HE, and pancytopenia. - Patient Problems (1) Hepatic encephalopathy Current Visit: Yes Status: Acute Code(s): K72.90 - HEPATIC FAILURE, UNSPECIFIED WITHOUT COMA SNOMED Code(s): 11262909 Comment: - Lactulose QID, pt does not take regularly at home, Rifaxin - UA is clear, no recent illness, denies belly pain which would make SBP less likely. 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 splenomegaly and portal HTN, possibly nutrition - Will ensure pt has heme follow up - Transfuse < 7, will check H/H and transfuse as needed, no e/o GIB at this time (4) Breast cancer Current Visit: No Status: Acute Code(s): C50.919 - MALIGNANT NEOPLASM OF UNSP SITE OF UNSPECIFIED FEMALE BREAST SNOMED Code(s): 251087371 Comment: - In remission, PORT placed for GIB - Holding anastrazole (5) DVT prophylaxis Current Visit: Yes Status: Acute Code(s): Z29.9 - ENCOUNTER FOR PROPHYLACTIC MEASURES, UNSPECIFIED SNOMED Code(s): 435898150 Comment: - SQH, hold for plt < 50, currently at 67 (6) Full code status Current Visit: Yes Status: Acute Code(s): Z78.9 - OTHER SPECIFIED HEALTH STATUS SNOMED Code(s): 299090903 Status and Disposition: -Pt originally from [place] where her primary medical care is. Goal is to clear from HE standpoing and d/c to home if possible
[2018-12-31] MEDS ORDERED: SPIRONOLACTONE 100 MG PO SCH (09:00)
[2018-12-31] MEDS ORDERED: Nadolol TAB* 40 MG PO SCH (09:00)
[2018-12-31] MEDS: Rifaximin 20 mg/mL Suspension (Pharmacy to Compound) PO SCH ×2 (09:11→21:30)
[2018-12-31] MEDS: Spironolactone TAB* 25 MG PO SCH (09:11)
[2018-12-31] MEDS: Sucralfate TAB* 1 GM PO SCH ×3 (09:12→18:05)
[2018-12-31] MEDS: Pantoprazole TAB * 40 MG TAB PO SCH ×2 (09:12→21:30)
[2018-12-31] MEDS: Furosemide TAB* 20 MG PO SCH (09:12)
[2018-12-31] MEDS: Heparin VIAL(*) 5000 UNITS/ML VIAL (FIVE THOUSAND) SUBCUT SCH ×2 (09:23→21:29)
[2018-12-31] MEDS ORDERED: Bisacodyl SUPP* 10 MG SUPP PR ONE (14:10)
[2018-12-31] MEDS ORDERED: Morphine INJ* 2 MG/ML 1 ML SYRINGE (TWO MG - NEW SYRINGE VERSION) IV PRN (14:11)
[2018-12-31] MEDS ORDERED: Ondansetron INJ* 2 MG/ML VIAL ONE (17:26)
[2018-12-31 18:10] LABS: Hematocrit 22 % (35-47); Hemoglobin 7.5 g/dL (12.0-16.0)
--- NOTE | 2018-12-31 18:14 | PN ---
Hospitalist Progress Note Date of Service: 12/31/18 Update 53 F with cirrhosis 2/2 to HILL, arrived from [place] and provided more collateral, chart copied from [facility] and placed in paper chart -also with history of GAVE which is source of ongoing blood loss anemia ( diffuse angiodysplasia of small bowel dx by push enteroscopy on 10/02 -Last EGD 08/31 showed no sig EV, on nadalol for conrol of AVM and portal HTN and gastric varices -Baseline ammonia roughly 70 -He reports she IS compliant on lactulose TID, also tried crystallose with failure, outpt notes indicate she may need to be bumped to 5x a day Julia unfortunately developed diffuse abdominal pain this afternoon worse in LLQ , though belly soft ND + fluid wave, +abdominal hernia with caput, no rebound or guarding but a diffuse dull aching pain with intermittent cramping, we initially tried a dulocolx, she had 3 small loose stools with no improvement in pain -Ddx SBP, MSK pain strech from ascites, also concerning that with mult GIB from GAVE in the past she has not been on SBP PPX -Bedside US reveals scant ascites but no clear pocket, attempted at RLQ where largest area of ascites was but none able to be aspirated -Given her change in pain and decompensated HE with possible slow GAVE bleed, I am going to start CTX 2g q 24 hr x 5 days #Belly pain: Concern for SBP, no clear pocket to tap at bedside, could also just be pain from stretch from ascites or possible cramping from lactulose -Start CTX 2g daily Day 1/5 on 12/31 -Small doses of Morphine, continue lactulose, has had x 3 BM on 12/31 -Hold Nadalol 20mg while treating given better mortality #HE: Cont lactulose, will add miralax, cont Rifaxin #GAVE: no EV on scope as above -Concern for occult bleed that preceeded this episode of HE. -Would need SBP PPX, but will continue tx dose given diffuse belly pain
[2018-12-31] MEDS ORDERED: cefTRIAXone(*) 2 GM in NS 0.9% 100 ML* 100 ML IVPB SCH (19:00)
[2018-12-31] MEDS: Morphine INJ* 2 MG/ML 1 ML SYRINGE (TWO MG - NEW SYRINGE VERSION) IV PRN (21:22)
[2018-12-31] MEDS: Ondansetron INJ* 2 MG/ML VIAL IV PRN (22:52)
[2019-01-01] MEDS: Morphine INJ* 2 MG/ML 1 ML SYRINGE (TWO MG - NEW SYRINGE VERSION) IV PRN (01:43)
[2019-01-01] MEDS ORDERED: Morphine INJ* 2 MG/ML 1 ML SYRINGE (TWO MG - NEW SYRINGE VERSION) IV PRN (01:58)
[2019-01-01] MEDS ORDERED: Iohexol 300* (CONTRAST) 10 ML SDV IV ONE (03:26)
[2019-01-01 04:52] LABS: Hematocrit 21 % (35-47); Hemoglobin 7.4 g/dL (12.0-16.0); Mean Corpuscular HGB Conc 36 g/dL (31-36); Mean Corpuscular Hemoglobin 40 pg (27-31); Mean Corpuscular Volume 112 fL (80-97); Mean Platelet Volume 7.9 fL (7.4-10.4); Platelet Count 87 10^3/uL (150-450); Red Blood Count 1.85 10^6 /uL (3.70-4.87); Red Cell Distribution Width 26 % (10-15); White Blood Count 3.2 10^3/uL (3.5-10.8)
[2019-01-01 05:03] LABS: Albumin/Globulin Ratio 1.2 (1-3); BUN/Creatinine Ratio 17.1 (8-20); Calcium 8.3 mg/dL (8.6-10.3); EGFR African American 58.5 (>60); EGFR Non-African American 48.4 (>60); Globulin 2.6 g/dL (2-4); Potassium 3.7 mmol/L (3.5-5.0); Total Bilirubin 1.9 mg/dL (0.2-1.0); Total Protein 5.6 g/dL (6.4-8.9)
[2019-01-01 05:15] LABS: ABS Eosinophils 0.2 10^3/ul (0-0.6); ABS Lymphocytes 1.1 10^3/ul (1.0-4.8); ABS Monocytes 0.3 10^3/ul (0-0.8); ABS Neutrophils 1.6 10^3/ul (1.5-7.7); Eosinophil % 7.2 %; Lymphocyte % 33.3 %; Nucleated Red Blood Cells % 0.1; Polychromasia 1+; Tear Drop Cells 1+
[2019-01-01] MEDS: Ondansetron INJ* 2 MG/ML VIAL IV PRN ×2 (05:32→19:36)
--- NOTE | 2019-01-01 06:56 | PN ---
Subjective Date of Service: 01/01/19 Interval History: HD3 on 01/01 53F PMH breast Ca dx 2 yr ago s/p chemo radiation finished 1 yr ago, previously asymptomatic HILL now c/b cirrhosis d/b hepatic encephalopathy (and what appears to be ascites and EV), hx of recurrent GIB with stable microcytic anemia who presented with HE in setting of poor compliance to outpt lactulose. ? SBP On ceftriaxone( day2/5 on 01/01) Overnight, VSS, mild soft BP Labs: Ammonia down trending, Hb-7.4 Creatinine; 1.17 today COmplains of diffuse abdominal pain-more around umbilicus; pain is on and off, sharp shooting like HAs lethargy, nausea but no vomiting Oriented to TPP C/O black stool Objective Active Medications: Furosemide (Lasix Tab*) 40 mg PO DAILY [facility] Last Admin: 12/31/18 09:12 Dose: 40 mg Heparin Sodium (Porcine) (Heparin Vial(*)) 5,000 units SUBCUT Q12HR [facility] Last Admin: 12/31/18 21:29 Dose: 5,000 units Heparin Sodium (Porcine) (Heparin Flush Port (Ivad)) 5 ml FLUSH DAILY [facility]; Protocol Last Admin: 12/31/18 21:21 Dose: 5 ml Hydroxyzine HCl (Atarax Tab*) 10 mg PO TID PRN PRN Reason: ITCHING Ceftriaxone Sodium 2 gm/ (Sodium Chloride) 100 mls @ 200 mls/hr IVPB Q24H MARIA L Stop: 01/04/19 19:29 Last Admin: 12/31/18 19:22 Dose: 200 mls/hr Sodium Chloride (Ns 0.9% 1000 Ml) 1,000 mls @ 75 mls/hr IV PER RATE [facility] Lactulose (Lactulose*) 45 ml PO QID [facility] Last Admin: 12/31/18 21:30 Dose: 45 ml Morphine Sulfate (Morphine Inj (Syringe))*) 2 mg IV Q4H PRN PRN Reason: PAIN - SEVERE Last Admin: 01/01/19 02:10 Dose: 2 mg Ondansetron HCl (Zofran Inj*) 4 mg IV Q6H PRN PRN Reason: NAUSEA Last Admin: 01/01/19 05:32 Dose: 4 mg Pantoprazole Sodium (Protonix Tab*) 40 mg PO BID [facility] Last Admin: 12/31/18 21:30 Dose: 40 mg Polyethylene Glycol/Electrolytes (Miralax*) 17 gm PO DAILY [facility] Prochlorperazine (Compazine Tab*) 10 mg PO Q6H PRN PRN Reason: NAUSEA Last Admin: 12/31/18 13:22 Dose: 10 mg Rifaximin (Xifaxan Compounded Susp) 550 mg PO BID [facility] Last Admin: 12/31/18 21:30 Dose: 550 mg Spironolactone (Aldactone Tab*) 100 mg PO DAILY [facility] Last Admin: 12/31/18 09:11 Dose: 100 mg Sucralfate (Carafate*) 1 gm PO AC [facility] Last Admin: 12/31/18 18:05 Dose: 1 gm Vital Signs - 8 hr 12/31/18 01/01/19 01/01/19 23:25 01:43 02:10 Temperature 97.5 F Pulse Rate 77 Respiratory 16 20 20 Rate Blood Pressure 96/64 (mmHg) O2 Sat by Pulse 100 Oximetry 01/01/19 01/01/19 03:00 03:23 Temperature 98.0 F Pulse Rate 81 Respiratory 16 16 Rate Blood Pressure 103/71 (mmHg) O2 Sat by Pulse 100 Oximetry Oxygen Devices in Use Now: None Exam: Patient is lying on a bed with no acute distress HEENT: Normocephalic and atraumatic Lungs: CLear with no added sounds Heart: S1/S2 heard with no murmur Abdomen: Firm and distended and tenderness present on all over abdomen with no rebound tenderness, guarding or rigidity. Normal BS heard Extremities: No swelling Neuro: ALert and oriented. Mild flapping tremor present. Confused at times. Result Diagrams: 01/01/19 04:30 01/01/19 04:30 Assess/Plan/Problems-Billing Assessment: 53F PMH breast Ca dx 2 yr ago s/p chemo radiation, previously asymptomatic HILL now c/b cirrhosis d/b hepatic encephalopathy (and what appears to be ascites and EV), hx of recurrent GIB with stable microcytic anemia(2/2 GAVE) who presented with decompensated cirrohosis with HE, and pancytopenia. - Patient Problems (1) Hepatic encephalopathy Current Visit: Yes Status: Acute Code(s): K72.90 - HEPATIC FAILURE, UNSPECIFIED WITHOUT COMA SNOMED Code(s): 13652228 Comment: - still confused at times; had 3 BM yesterday - Lactulose 45 ml PO QID; will titrate accordingly to produce 2-3 soft stools per day. 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 - Abdomen/Pelvis CT- Distension of large and small bowel suggesting ileus, Mesenteric lymphadenopathy, old compression fracture and hepatic cyst - could be from lactulose; or ileus -will consult GI (4) Pancytopenia Current Visit: Yes Status: Acute Code(s): D61.818 - OTHER PANCYTOPENIA SNOMED Code(s): 136149834 Comment: - Off chemo for one year, per family has had GIB from small bowel 2/2 GAVE( push entroscopy done on 10/02) (they deny EV bleed) intermittenly - Bone marrow suppression from ? splenomegaly and portal HTN, possibly nutrition - Will ensure pt has heme follow up - Transfuse < 7, will check H/H and transfuse as needed (5) Breast cancer Current Visit: No Status: Acute Code(s): C50.919 - MALIGNANT NEOPLASM OF UNSP SITE OF UNSPECIFIED FEMALE BREAST SNOMED Code(s): 603411090 Comment: - In remission, PORT placed for GIB - Holding anastrazole (6) Gastric antral vascular ectasia Current Visit: Yes Status: Acute Code(s): K31.819 - ANGIODYSPLASIA OF STOMACH AND DUODENUM WITHOUT BLEEDING SNOMED Code(s): 29169617 Comment: -Diagnosed by push enteroscopy in 10/02 -Last EGD on 08/31- NO esophageal varices -complains of black stool; could be from GI bleed - Will consult GI (7) DVT prophylaxis Current Visit: Yes Status: Acute Code(s): Z29.9 - ENCOUNTER FOR PROPHYLACTIC MEASURES, UNSPECIFIED SNOMED Code(s): 621769151 Comment: - SQH, hold for plt < 50, currently at 67 (8) Full code status Current Visit: Yes Status: Acute Code(s): Z78.9 - OTHER SPECIFIED HEALTH STATUS SNOMED Code(s): 702263795 Status and Disposition: -Pt originally from [place] where her primary medical care is. Goal is to clear from HE standpoing and d/c to home if possible Attending: Lee Barreto Attestation Documenting Resident: Niyah Souza Supervising Physician: Ti Barreto Attestation: This service has been performed in part by a resident under the direction of a teaching physician.I, Ti Barreto, performed the service, or was physically present during the critical, or mesa portions of the service, furnished by the resident. I participated in the management of the patient.
[2019-01-01] MEDS: hydrOXYzine HCL TAB* 10 MG PO PRN ×2 (06:57→13:24)
[2019-01-01] MEDS ORDERED: Potassium Chlor TAB* 20 MEQ TAB.ER PO ONE (07:10)
[2019-01-01] MEDS: NS 0.9% 1000 ML** 1,000 ML IV SCH ×2 (07:25→19:13)
[2019-01-01] MEDS: Polyethylene Glycol 3350* 17 GM PACKET PO SCH (09:26)
[2019-01-01] MEDS: Spironolactone TAB* 25 MG PO SCH (09:26)
[2019-01-01] MEDS: Sucralfate TAB* 1 GM PO SCH ×3 (09:26→17:33)
[2019-01-01] MEDS: Pantoprazole TAB * 40 MG TAB PO SCH ×2 (09:26→21:36)
[2019-01-01] MEDS: Furosemide TAB* 20 MG PO SCH (09:26)
[2019-01-01] MEDS: Rifaximin 20 mg/mL Suspension (Pharmacy to Compound) PO SCH ×2 (09:33→21:48)
[2019-01-01] MEDS: Heparin VIAL(*) 5000 UNITS/ML VIAL (FIVE THOUSAND) SUBCUT SCH ×2 (09:42→21:51)
[2019-01-01] MEDS: Simethicone TAB* 80 MG TAB.CHEW PO PRN (13:24)
--- NOTE | 2019-01-01 17:11 | CONS ---
CONSULTATION REPORT: DATE OF CONSULT: 01/01/19 REQUESTING PHYSICIAN: Dr. Reardon. INDICATION: Encephalopathy and anemia. NARRATIVE: Mrs. Flynn is a very pleasant 53-year-old female, she is well known to myself. I diagnosed her with HILL cirrhosis in the past, last time I saw her was in 2017. She and her at that point moved to [place] and has been undergoing treatment there. In the meantime, she had developed breast cancer, underwent chemo and radiation and a double mastectomy. Her states that after the chemo, her liver disease seemed to worsen. 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 She has been having issues with worsening anemia, requiring frequent blood transfusions. She has been undergoing frequent endoscopies with cauterizations. She has also had numerous emergency room visits for worsening encephalopathy. According to the , she takes lactulose 3 times a day. She really does not eat much meat. She has been having worsening abdominal pain. She has had ileus in the past. Her brought her to [place] on Tuesday night for a family reunion. He had to leave Tuesday after she was dropped off with her daughter and returned back to [place]. Tuesday morning, she was very encephalopathic and EMT was called, they brought her to the emergency room. She was admitted to the hospital. She has been receiving lactulose. She did have a CT, which revealed minimal amount of ascites. A tap was attempted, but no fluid was obtained. CT also revealed an ileus, which the states she has had in the past. She denies any fevers or chills last week prior to him dropping her off here in [place]. He states that she does take her medicines on a regular basis. Currently, she still is encephalopathic. She is unsure of the hospital she is in or the time and date. She falls asleep very easily. PAST MEDICAL HISTORY: Please see the HPI. MEDICATIONS AT HOME: Include: 1. Compazine. 2. Colestipol. 3. Sucralfate. 4. Pantoprazole. 5. Lactulose. 6. Lasix. 7. Spironolactone. 8. Rifaximin. 9. Nadolol. 10. Loperamide. 11. Hydroxyzine. FAMILY HISTORY: No liver disease in the family. SOCIAL HISTORY: No recent alcohol use. No IV drugs. SURGICAL: Bilateral breast removal ALLERGIES: pcn REVIEW OF SYSTEMS: Twelve systems were reviewed and other than that mentioned in the HPI were unremarkable. PHYSICAL EXAM: Temperature is 97.8, blood pressure is 142/64, pulse is 81, respiratory rate of 16, O2 sat is 100%. General: Somnolent female, asleep in bed. She does awaken, but falls back to sleep very easily. She is not oriented. Heart: Regular rate and rhythm. Lungs: Clear to auscultation. Abdomen is distended. Positive bowel sounds. Soft. Mild diffuse tenderness. No rebound, no guarding. Skin is warm and dry, numerous signs of chronic liver disease. Neuro: positive asterixis DIAGNOSTIC STUDIES/LAB DATA: Labs of note: Hemoglobin is 7.4, which according to the , is about her baseline. White count is 3.2, platelets of 87. INR is 1.27. Sodium is 129, creatinine is 1.71, glucose is 110, alk phos is 89 , ammonia is down to 92, albumin is 3.0. CT shows ileus, no ascites. ASSESSMENT AND PLAN: This is a pleasant 53-year-old female with nonalcoholic steatohepatitis cirrhosis, who is here visiting [place] and has developed worsening encephalopathy. At this point, it does seem that her anemia is stable. I did have a long conversation with her regarding further management and workup of this and he would prefer to return back to [place] where they know her well. To manage this right now, it seems that her hemoglobin is at baseline. As far as her encephalopathy goes, we will continue with the rifaximin. We will increase her lactulose and hopefully in the next day or 2, she will start to clear. The CT showed just trace ascites with a dry tap, it does not appear that this is spontaneous bacterial peritonitis. She does have an ileus; this could be contributing to both her pain and potentially worsening encephalopathy. Hopefully, the lactulose will help with that and we will continue to follow along on a daily basis. [id number]/[facility] #: [id number] [facility]
[2019-01-02 05:25] LABS: Hematocrit 18 % (35-47); Hemoglobin 6.3 g/dL (12.0-16.0); Mean Corpuscular HGB Conc 35 g/dL (31-36); Mean Corpuscular Hemoglobin 40 pg (27-31); Mean Corpuscular Volume 113 fL (80-97); Mean Platelet Volume 7.6 fL (7.4-10.4); Platelet Count 71 10^3/uL (150-450); Red Blood Count 1.58 10^6 /uL (3.70-4.87); Red Cell Distribution Width 26 % (10-15); White Blood Count 2.8 10^3/uL (3.5-10.8)
[2019-01-02 05:28] LABS: BUN/Creatinine Ratio 15.7 (8-20); EGFR Non-African American 71.9 (>60); Potassium 4.1 mmol/L (3.5-5.0)
[2019-01-02 05:43] LABS: ABS Eosinophils 0.2 10^3/ul (0-0.6); ABS Lymphocytes 0.8 10^3/ul (1.0-4.8); ABS Monocytes 0.2 10^3/ul (0-0.8); ABS Neutrophils 1.5 10^3/ul (1.5-7.7); Eosinophil % 7.9 %; Lymphocyte % 29.6 %; Nucleated Red Blood Cells % 0.2; Polychromasia 2+
[2019-01-02] MEDS: Nadolol TAB* 40 MG PO SCH (09:30)
[2019-01-02] MEDS: Sucralfate TAB* 1 GM PO SCH ×3 (09:31→16:50)
[2019-01-02] MEDS: Spironolactone TAB* 25 MG PO SCH (09:32)
[2019-01-02] MEDS: Furosemide TAB* 20 MG PO SCH (09:32)
[2019-01-02] MEDS: Pantoprazole TAB * 40 MG TAB PO SCH ×2 (09:32→21:23)
[2019-01-02] MEDS: Rifaximin 20 mg/mL Suspension (Pharmacy to Compound) PO SCH ×2 (09:36→21:23)
[2019-01-02] MEDS: Heparin VIAL(*) 5000 UNITS/ML VIAL (FIVE THOUSAND) SUBCUT SCH ×2 (09:39→21:22)
[2019-01-02] MEDS: Polyethylene Glycol 3350* 17 GM PACKET PO SCH (09:39)
[2019-01-02 10:25] LABS: Hematocrit 18 % (35-47); Hemoglobin 6.1 g/dL (12.0-16.0)
[2019-01-02] MEDS: NS 0.9% 1000 ML** 1,000 ML IV SCH (13:42)
[2019-01-02] MEDS: Simethicone TAB* 80 MG TAB.CHEW PO PRN (13:48)
--- NOTE | 2019-01-02 14:57 | PN ---
Subjective Date of Service: 01/02/19 Interval History: HD4 on 01/02 53F PMH breast Ca dx 2 yr ago s/p chemo radiation finished 1 yr ago, previously asymptomatic HILL now c/b cirrhosis d/b hepatic encephalopathy (and what appears to be ascites and EV), hx of recurrent GIB with stable microcytic anemia who presented with HE. Hb 6.3- 1U PRBC Overnight- Hb of 6.3 Vitals stable Patient is feeling good. Less confused than yesterday No abdominal pain Had 6-7 BM yesterday; brownish black colored Objective Active Medications: Furosemide (Lasix Tab*) 40 mg PO DAILY [facility] Last Admin: 01/02/19 09:32 Dose: 40 mg Heparin Sodium (Porcine) (Heparin Vial(*)) 5,000 units SUBCUT Q12HR [facility] Last Admin: 01/02/19 09:39 Dose: 5,000 units Heparin Sodium (Porcine) (Heparin Flush Port (Ivad)) 5 ml FLUSH DAILY [facility]; Protocol Last Admin: 01/02/19 09:18 Dose: Not Given Hydroxyzine HCl (Atarax Tab*) 10 mg PO TID PRN PRN Reason: ITCHING Last Admin: 01/01/19 13:24 Dose: 10 mg Sodium Chloride (Ns 0.9% 1000 Ml) 1,000 mls @ 75 mls/hr IV PER RATE [facility] Last Admin: 01/02/19 13:42 Dose: 75 mls/hr Lactulose (Lactulose*) 45 ml PO TID [facility] Last Admin: 01/02/19 13:49 Dose: 45 ml Nadolol (Corgard Tab*) 20 mg PO DAILY [facility] Last Admin: 01/02/19 09:30 Dose: 20 mg Ondansetron HCl (Zofran Inj*) 4 mg IV Q6H PRN PRN Reason: NAUSEA Last Admin: 01/01/19 19:36 Dose: 4 mg Pantoprazole Sodium (Protonix Tab*) 40 mg PO BID [facility] Last Admin: 01/02/19 09:32 Dose: 40 mg Polyethylene Glycol/Electrolytes (Miralax*) 17 gm PO DAILY [facility] Last Admin: 01/02/19 09:39 Dose: 17 gm Prochlorperazine (Compazine Tab*) 10 mg PO Q6H PRN PRN Reason: NAUSEA Last Admin: 12/31/18 13:22 Dose: 10 mg Rifaximin (Xifaxan Compounded Susp) 550 mg PO BID [facility] Last Admin: 01/02/19 09:36 Dose: 550 mg Simethicone (Mylicon Tab*) 80 mg PO Q6H PRN PRN Reason: bloating Last Admin: 01/02/19 13:48 Dose: 80 mg Spironolactone (Aldactone Tab*) 100 mg PO DAILY [facility] Last Admin: 01/02/19 09:32 Dose: 100 mg Sucralfate (Carafate*) 1 gm PO AC [facility] Last Admin: 01/02/19 12:51 Dose: 1 gm Vital Signs - 8 hr 01/02/19 01/02/19 01/02/19 07:29 08:00 11:03 Temperature 97.9 F 98.3 F Pulse Rate 71 85 Respiratory 20 20 20 Rate Blood Pressure 133/60 124/52 (mmHg) O2 Sat by Pulse 100 100 Oximetry 01/02/19 01/02/19 11:25 13:31 Temperature 98 F 98.1 F Pulse Rate 75 71 Respiratory 20 18 Rate Blood Pressure 105/50 132/55 (mmHg) O2 Sat by Pulse 100 100 Oximetry Oxygen Devices in Use Now: None Exam: Patient is lying on a bed with no acute distress HEENT: Normocephalic and atraumatic Lungs: CLear with no added sounds Heart: S1/S2 heard with no murmur Abdomen: Firm and distended and mild tenderness present with no rebound tenderness, guarding or rigidity. Normal BS heard Extremities: No swelling Neuro: ALert and oriented. Mild flapping tremor present. Confused at times. 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 Hospital course c/b severe anemia; 1 U PRBC - Patient Problems (1) Hepatic encephalopathy Current Visit: Yes Status: Acute Code(s): K72.90 - HEPATIC FAILURE, UNSPECIFIED WITHOUT COMA SNOMED Code(s): 28428906 Comment: - Improved- had 6-7 bowel movement yesterday - Lactulose 45 ml PO TID(decreased today as she had 6-7 BM yesterday); will titrate accordingly to produce 2-3 soft stools per day. -on rifaximin 550 mg BID (2) Cirrhosis of liver Current Visit: Yes Status: Acute Comment: - D/b ascites, HE - HE: [facility] Grade I right now, Lactulose TID, Rifaximin - Ascites: Furosemide and Spironolactone 2:1 - EV: nadalol with HR to 70, in goal - Thought to be 2/2 to [facility] Child Xiong B, MELD 20 on arrival - [facility] Specialist in [place], not a transplant candidate 2/2 to chemo finishing 1 year ago; should be 5 yr cancer free for transplant (3) Diffuse abdominal pain Current Visit: Yes Status: Acute Code(s): R10.84 - GENERALIZED ABDOMINAL PAIN SNOMED Code(s): 836371928 Comment: - Improved today; though still some tenderness -GI following - could be because of cramping 2/2 lactulose (4) Pancytopenia Current Visit: Yes Status: Acute Code(s): D61.818 - OTHER PANCYTOPENIA SNOMED Code(s): 729395766 Comment: - Off chemo for one year, per family has had GIB from small bowel 2/2 GAVE( push entroscopy done on 10/02) (they deny EV bleed) intermittenly - Bone marrow suppression from ? splenomegaly and portal HTN, possibly nutrition - Will ensure pt has heme follow up - Transfuse < 7, will check H/H and transfuse as needed (5) Breast cancer Current Visit: No Status: Acute Code(s): C50.919 - MALIGNANT NEOPLASM OF UNSP SITE OF UNSPECIFIED FEMALE BREAST SNOMED Code(s): 354538789 Comment: - In remission, PORT placed for GIB - Holding anastrazole (6) Gastric antral vascular ectasia Current Visit: Yes Status: Acute Code(s): K31.819 - ANGIODYSPLASIA OF STOMACH AND DUODENUM WITHOUT BLEEDING SNOMED Code(s): 43858157 Comment: -Diagnosed by push enteroscopy in 10/02 -Last EGD on 08/31- NO esophageal varices - Her HB dropped to 6.3 suggestive of bleeding -1 U of PRBC (7) DVT prophylaxis Current Visit: Yes Status: Acute Code(s): Z29.9 - ENCOUNTER FOR PROPHYLACTIC MEASURES, UNSPECIFIED SNOMED Code(s): 895636735 Comment: - SQH, hold for plt < 50, currently at 67 (8) Full code status Current Visit: Yes Status: Acute Code(s): Z78.9 - OTHER SPECIFIED HEALTH STATUS SNOMED Code(s): 929969709 Status and Disposition: -Pt originally from [place] where her primary medical care is. Goal is to clear from HE and stable H&H Attending: Lee Barreto Attestation Documenting Resident: Niyah Souza Supervising Physician: Ti Barreto Attestation: This service has been performed in part by a resident under the direction of a teaching physician.I, Ti Barreto, performed the service, or was physically present during the critical, or mesa portions of the service, furnished by the resident. I participated in the management of the patient.
[2019-01-03] MEDS: hydrOXYzine HCL TAB* 10 MG PO PRN (01:18)
[2019-01-03] MEDS: Simethicone TAB* 80 MG TAB.CHEW PO PRN (01:22)
[2019-01-03] MEDS ORDERED: Morphine INJ* 2 MG/ML 1 ML SYRINGE (TWO MG - NEW SYRINGE VERSION) IV ONE (02:46)
[2019-01-03] MEDS: Ondansetron INJ* 2 MG/ML VIAL IV PRN (03:52)
[2019-01-03 03:57] VITALS: BP 126/51
[2019-01-03] MEDS: Sucralfate TAB* 1 GM PO SCH (05:50)
[2019-01-03 06:34] LABS: Hematocrit 21 % (35-47); Hemoglobin 7.6 g/dL (12.0-16.0); Mean Corpuscular HGB Conc 36 g/dL (31-36); Mean Corpuscular Hemoglobin 39 pg (27-31); Mean Corpuscular Volume 108 fL (80-97); Mean Platelet Volume 7.5 fL (7.4-10.4); Platelet Count 73 10^3/uL (150-450); Red Blood Count 1.95 10^6 /uL (3.70-4.87); Red Cell Distribution Width 28 % (10-15); White Blood Count 3.1 10^3/uL (3.5-10.8)
[2019-01-03 06:35] LABS: ABS Eosinophils 0.3 10^3/ul (0-0.6); ABS Lymphocytes 0.7 10^3/ul (1.0-4.8); ABS Monocytes 0.3 10^3/ul (0-0.8); ABS Neutrophils 1.7 10^3/ul (1.5-7.7); Nucleated Red Blood Cells % 0.1
[2019-01-03 06:38] LABS: BUN/Creatinine Ratio 12.3 (8-20); Calcium 7.8 mg/dL (8.6-10.3); EGFR African American 89.5 (>60); Potassium 3.7 mmol/L (3.5-5.0)
--- NOTE | 2019-01-03 06:42 | PN ---
Subjective Date of Service: 01/03/19 Interval History: HD 5 on 01/03 53F PMH breast Ca dx 2 yr ago s/p chemo radiation finished 1 yr ago, previously asymptomatic HILL now c/b cirrhosis d/b hepatic encephalopathy (and what appears to be ascites and EV), hx of recurrent GIB with stable microcytic anemia who presented with HE. s/p ! U of PRBC HB-7.6 No acute overnight events. Vitals stable Patient does not have any complain at present. had 4 BM yesterday Objective Active Medications: Furosemide (Lasix Tab*) 40 mg PO DAILY [facility] Last Admin: 01/02/19 09:32 Dose: 40 mg Heparin Sodium (Porcine) (Heparin Vial(*)) 5,000 units SUBCUT Q12HR [facility] Last Admin: 01/02/19 21:22 Dose: 5,000 units Heparin Sodium (Porcine) (Heparin Flush Port (Ivad)) 5 ml FLUSH DAILY [facility]; Protocol Last Admin: 01/02/19 09:18 Dose: Not Given Hydroxyzine HCl (Atarax Tab*) 10 mg PO TID PRN PRN Reason: ITCHING Last Admin: 01/03/19 01:18 Dose: 10 mg Lactulose (Lactulose*) 45 ml PO TID [facility] Last Admin: 01/02/19 21:23 Dose: 45 ml Nadolol (Corgard Tab*) 20 mg PO DAILY [facility] Last Admin: 01/02/19 09:30 Dose: 20 mg Ondansetron HCl (Zofran Inj*) 4 mg IV Q6H PRN PRN Reason: NAUSEA Last Admin: 01/03/19 03:52 Dose: 4 mg Pantoprazole Sodium (Protonix Tab*) 40 mg PO BID [facility] Last Admin: 01/02/19 21:23 Dose: 40 mg Polyethylene Glycol/Electrolytes (Miralax*) 17 gm PO DAILY [facility] Last Admin: 01/02/19 09:39 Dose: 17 gm Prochlorperazine (Compazine Tab*) 10 mg PO Q6H PRN PRN Reason: NAUSEA Last Admin: 12/31/18 13:22 Dose: 10 mg Rifaximin (Xifaxan Compounded Susp) 550 mg PO BID [facility] Last Admin: 01/02/19 21:23 Dose: 550 mg Simethicone (Mylicon Tab*) 80 mg PO Q6H PRN PRN Reason: bloating Last Admin: 01/03/19 01:22 Dose: 80 mg Spironolactone (Aldactone Tab*) 100 mg PO DAILY [facility] Last Admin: 01/02/19 09:32 Dose: 100 mg Sucralfate (Carafate*) 1 gm PO AC [facility] Last Admin: 01/03/19 05:50 Dose: 1 gm Vital Signs - 8 hr 01/02/19 01/03/19 01/03/19 23:45 01:18 03:25 Temperature 98.6 F 98.4 F Pulse Rate 77 83 Respiratory 14 18 14 Rate Blood Pressure 145/66 126/51 (mmHg) O2 Sat by Pulse 100 100 Oximetry 01/03/19 01/03/19 01/03/19 03:44 03:51 05:09 Temperature Pulse Rate Respiratory 16 16 16 Rate Blood Pressure (mmHg) O2 Sat by Pulse Oximetry Oxygen Devices in Use Now: None Exam: Patient is lying on a bed with no acute distress HEENT: Normocephalic and atraumatic Lungs: CLear with no added sounds Heart: S1/S2 heard with no murmur Abdomen: Firm and distended and mild tenderness present with no rebound tenderness, guarding or rigidity. Normal BS heard Extremities: No swelling Neuro: ALert and oriented. 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 [place], not a transplant candidate 2/2 to chemo finishing 1 year ago; should be 5 yr cancer free for transplant (3) Diffuse abdominal pain Status: Acute Code(s): R10.84 - GENERALIZED ABDOMINAL PAIN SNOMED Code(s): 452319015 Comment: - Improved today; No tenderness -GI following - could be because of cramping 2/2 lactulose (4) Pancytopenia Status: Acute Code(s): D61.818 - OTHER PANCYTOPENIA SNOMED Code(s): 593630169 Comment: - Off chemo for one year, per family has had GIB from small bowel 2/2 GAVE( push entroscopy done on 10/02) (they deny EV bleed) intermittenly - Bone marrow suppression from ? splenomegaly and portal HTN, possibly nutrition - Will ensure pt has heme follow up - Transfuse < 7, will check H/H and transfuse as needed (5) Breast cancer Status: Acute Code(s): C50.919 - MALIGNANT NEOPLASM OF UNSP SITE OF UNSPECIFIED FEMALE BREAST SNOMED Code(s): 579232222 Comment: - In remission, PORT placed for GIB - Holding anastrazole (6) Gastric antral vascular ectasia Status: Acute Code(s): K31.819 - ANGIODYSPLASIA OF STOMACH AND DUODENUM WITHOUT BLEEDING SNOMED Code(s): 04100097 Comment: -Diagnosed by push enteroscopy in 10/02 -Last EGD on 08/31- NO esophageal varices - Her HB dropped to 6.3 suggestive of bleeding -1 U of PRBC (7) DVT prophylaxis Status: Acute Code(s): Z29.9 - ENCOUNTER FOR PROPHYLACTIC MEASURES, UNSPECIFIED SNOMED Code(s): 996426687 Comment: - SQH, hold for plt < 50, currently at 67 (8) Full code status Status: Acute Code(s): Z78.9 - OTHER SPECIFIED HEALTH STATUS SNOMED Code(s) : 039319888 Status and Disposition: -Pt originally from [place] where her primary medical care is. Goal is to clear from HE and stable H&H -dc today Attending: Lee Barreto
[2019-01-03 07:03] LABS: Eosinophil % 8.6 %
[2019-01-03 07:04] LABS: Polychromasia 2+
[2019-01-03] MEDS: Furosemide TAB* 20 MG PO SCH (09:20)
[2019-01-03] MEDS: Nadolol TAB* 40 MG PO SCH (09:21)
[2019-01-03] MEDS: Pantoprazole TAB * 40 MG TAB PO SCH (09:22)
[2019-01-03] MEDS: Spironolactone TAB* 25 MG PO SCH (09:22)
[2019-01-03] MEDS: Rifaximin 20 mg/mL Suspension (Pharmacy to Compound) PO SCH (09:24)
[2019-01-03] MEDS: Polyethylene Glycol 3350* 17 GM PACKET PO SCH (09:24)
[2019-01-03] MEDS: Heparin VIAL(*) 5000 UNITS/ML VIAL (FIVE THOUSAND) SUBCUT SCH (09:33)
--- NOTE | 2019-01-03 23:08 | DS ---
CC: Dr. Ti Manjarrez, Phone No [phone]; Tamica Paez , [facility], [phone]; Dr. Howard Alfaro, ; Dr. Noni Guido, , [facility] DISCHARGE SUMMARY: DATE OF ADMISSION: 12/30/18. 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 SECONDARY DIAGNOSES: 1. Nonalcoholic steatohepatitis. 2. History of breast cancer slightly more than 1 year ago, status post mastectomy and chemo with radiation. 3. Anemia due to chronic gastrointestinal bleed related to gastric varices, suspected small-bowel bleeding as well. MEDICATIONS ON DISCHARGE: 1. Anastrozole 1 mg p.o. daily. 2. Colestipol 1 g p.o. daily. 3. Furosemide 40 mg p.o. q.a.m. 4. Hydroxyzine 10 mg p.o. t.i.d. p.r.n. for pruritus. 5. Lactulose 45 mL p.o. 4 times a day. 6. Pantoprazole 40 mg p.o. b.i.d. 7. Compazine 10 mg p.o. q.6 hours p.r.n. for nausea. 8. Rifaximin 20 mg/mL suspension 550 mg p.o. b.i.d. 9. Spironolactone 100 mg p.o. daily. 10. Sucralfate 5 mg p.o. b.i.d. 11. Nadolol 20 mg p.o. daily. 12. MiraLAX 17 g mixed with water p.o. daily. 13. Simethicone 80 mg p.o. q.6 hours p.r.n. for bloating. CONSULTATION: Dr. Ramirez from gastroenterology. PROCEDURES: None. HOSPITAL COURSE: The patient was admitted to the emergency department on with severe confusion and encephalopathy. She has had multiple admissions for anemia and encephalopathy in the last 3 months mainly in her hometown of [place], but also [place] and [place] where she is visiting. Her initial ammonia level was 273. She was admitted to the medical floor and given lactulose with a goal of reducing her ammonia and reducing the encephalopathy, having 3 to 4 loose stools per day. The patient on the day after admission complained of diffuse severe abdominal pain. She had abdomen and pelvic CT at that time that showed hepatic cysts and distended loops of large- and small- bowel suggesting ileus as well as mesenteric lymphadenopathy and an old compression fracture of T9 and T10. Prior to the CT being obtained, the patient 's abdominal pain was attributed to ascites and possible spontaneous bacterial peritonitis. She was empirically started on ceftriaxone for this and an attempt was made at a paracentesis, but this was a dry tap. With the CT results , it became clear that she does not have ascites or peritonitis and the distention of her bowel was the main cause of discomfort. All pain medicines were stopped and the apparent ileus resolved with a lot of passage of air and diarrhea. The patient rapidly improved over 2 days with her mental status improving as well as her abdominal pain resolving. On the day of discharge, she was ambulatory, alert and oriented x3. Anemia due to blood loss was also a problem during the hospital stay; her initial hemoglobin was 7.9. It fell to 7.4 after 2 days, but then fell to 6.1 on 01/02/19. The patient did have guaiac-positive stools, of course, and she did have 1 transfusion of red cells. This has been a recurrent problem for her due to gastric varices and probable small-bowel bleeding and she has had upwards of 30 transfusions according to her in the last year. The patient does have hyponatremia and does not appear volume overloaded at the time of discharge. Her sodium was 127 and she was advised to restrict her fluid intake to 1.5 L per day and have her recheck BMP in 1 week. DISPOSITION: To home with her daughter driving her back to [place], where she lives with her . ACTIVITY: As tolerated. DIET: High protein status post inpatient. CONDITION: Improved. FOLLOWUP: Followup should be with primary care physician in 1 week and with the transplant center within a month and with her communication clerk and insurance underwriting assistant within 2 weeks. TIME SPENT: I spent more than 50 minutes with the patient and her family and completed the necessary paperwork on the day of discharge. [id number]/[facility] #: [id number] [facility]ITAL[facility]aura
== END 2019-01-03 12:15 | disposition home or self-care (01) | DRG 279 ==
LOC: ED 15:31 → MEDTELE 18:31
PROVIDERS: ADMIT Internal Medicine; ATTEND Internal Medicine
PROC: 30233N1 Transfusion of Nonautologous Red Blood Cells into Peripheral Vein, Percutaneous Approach (ICD-10-PCS; principal; 2019-01-02)
DX: K72.00 Acute and subacute hepatic failure without coma (principal); D61.818 Other pancytopenia; D62 Acute posthemorrhagic anemia; K76.6 Portal hypertension; K92.2 Gastrointestinal hemorrhage, unspecified; E87.1 Hypo-osmolality and hyponatremia; K56.7 Ileus, unspecified; M48.54XA Collapsed vertebra, not elsewhere classified, thoracic region, initial encounter for fracture; K75.81 Nonalcoholic steatohepatitis (NASH); I95.9 Hypotension, unspecified; K31.819 Angiodysplasia of stomach and duodenum without bleeding; I86.4 Gastric varices; K72.10 Chronic hepatic failure without coma; K74.69 Other cirrhosis of liver; R59.0 Localized enlarged lymph nodes; Z88.0 Allergy status to penicillin; Z91.018 Allergy to other foods; Z85.3 Personal history of malignant neoplasm of breast; Z92.21 Personal history of antineoplastic chemotherapy; Z90.13 Acquired absence of bilateral breasts and nipples; Z92.3 Personal history of irradiation; Z91.14 Patient's other noncompliance with medication regimen
CPT/HCPCS: 36415; 74177; 80048; 80053; 81003; 82140; 83605; 83735; 84484; 85014; 85018; 85025; 85060; 85610; 86850; 86900; 86901; 86922; 99284; A9270-GY; J0696; J1642; J1644; J2270; J2405; P9040; Q0164; Q9967